=== PATIENT | male | born 1995 | race Caucasian/White ===

== ENCOUNTER → 2018-10-16 15:00 | Outpatient (CLI) | payer SELFPAY ==
--- NOTE | 2018-10-16 15:00 | LES_PTH ---
PATIENT: MISSAEL SILVA LOC: [facility] U#:[id number] AGE/SX: 30/M ROOM: RE10/16/[address]: Dr. Carlos Silva MD : 1995 BED: DIS: SPEC #: [id number] RECD: 10/17/18 11:16 STATUS: MAHIN BRITTNY #: [id number] VALENTINA: 10/16/18 15:[address]: Carlos Silva DEPT: SURGICAL PATHOLOGY RECD BY: Vitor Garcia Tissues: A - Skin of neck, NOS B - Skin of back, NOS Procedures: [facility] Consultation Surgery Specimen Level IV HEADER OPERATION: Excision right neck and mid back lesions PRE-OP DIAGNOSIS: Uncertain neoplasm neck and trunk TISSUE SUBMITTED: A - Right neck tissue, B - Back tissue MICROSCOPIC DIAGNOSIS A. Right neck lesion, excisional biopsy: Compound nevus with predominantly intradermal component, completely excised in the planes of sections examined. B. Back lesion, excisional biopsy: Junctional nevus with mild architectural atypia, completely excised in the planes of sections examined. STEPHEN:erich 10/18/18 MICROSCOPIC DESCRIPTION Slides are reviewed. GROSS DESCRIPTION A - Received in fixative is one container labeled with the patient's name and designated right neck tissue. The specimen consists of a piece of thomas-brown skin measuring 0.7 x 0.4 x 0.3 cm. The specimen is inked and submitted entirely in one cassette. It will be bisected at the time of embedding. B - Received in fixative is one container labeled with the patient's name and designated back tissue. The specimen consists of a thomas-white skin ellipse measuring 1.7 x 0.6 cm and up to 1 cm in thickness. There is an ovoid to slightly irregular brown lesion on the surface measuring 0.6 x 0.5 cm. The specimen is inked, serially sectioned and submitted entirely in two cassettes. / STEPHEN:erich 10/17/18 TC:1 CPT: 79908 x2 ADDENDUM ADDENDUM ADDENDUM ADDENDUM ADDENDUM ADDENDUM ADDENDUM ADDENDUM ADDENDUM ADDENDUM ADDENDUM ADDENDUM 11/01/2018 12:31 ADDENDUM 11/01/2018 12:31 ADDENDUM 11/01/2018 12:31 ADDENDUM 11/01/2018 12:31 ADDENDUM 11/01/2018 12:31 This addendum is added to incorporate an outside pathology consultation report. The case was examined at [facility] (#[id number]) and the following diagnosis was rendered. A. Skin, right neck, excision: Compound nevus. B. 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 Please see complete above mentioned consultation report in EMR
== END ==
PROVIDERS: Referring Provider Surgery; Visit Provider Surgery
DX: D22.4 Melanocytic nevi of scalp and neck (principal)
CPT/HCPCS: 88305; 88325

== ENCOUNTER → 2022-04-19 | Outpatient (CLI) | payer OTHER, SELFPAY ==
--- NOTE | 2022-04-19 16:32 | US_ITS ---
STUDY: SCROTUM ULTRASOUND REASON FOR EXAM: Male, 26 years old. right testicular mass TECHNIQUE: Ultrasound evaluation of the scrotum was performed with color Doppler and static barraza-scale imaging. COMPARISON: None. FINDINGS: RIGHT TESTICLE INTRATESTICULAR: There is a normal size of the right testicle. The right testicle measures 4.2 x 3.4 cm. There is a homogenous echotexture. There is normal arterial and normal venous vascularity. There is no demonstrated right testicular mass or cyst. EXTRATESTICULAR: The epididymis is normal in size. The epididymis head measures 1 cm. There is normal vascularity of the epididymis. There is a well-defined cystic structure within the epididymis, without internal echoes, consistent with an epididymal cyst. This measures 3.3 mm. There is no demonstrated hydrocele. There is no demonstrated varicocele. There is a demonstrated extratesticular mass measuring 5 x 5 mm. This extends off the tunica albuginea. It is avascular. This can be related to prior or recent traumatic injury and the sequela of a scrotal hematoma. LEFT TESTICLE INTRATESTICULAR: There is a normal size of the left testicle. The left testicle measures 5 x 2.2 x 2.9 cm. There is a homogenous echotexture. There is normal arterial and normal venous vascularity. There is no demonstrated left testicular mass or cyst. EXTRATESTICULAR: The epididymis is normal in size. The epididymis head measures 1.3 cm. There is normal vascularity of the epididymis. There is a cystic structure within the epididymis, with low level echoes, consistent with a spermatocele. This measures 8 mm. There is no demonstrated hydrocele. There is no demonstrated varicocele. There is no demonstrated extratesticular mass or cyst. US/Testicular with Arterial Flow IMPRESSION: There are no acute findings of the bilateral testicles without evidence for torsion. There is a demonstrated RIGHT extratesticular mass measuring 5 x 5 mm. This extends off the tunica albuginea. It is avascular. This can be related to prior or recent traumatic injury and the sequela of a scrotal hematoma. The patient has a history of prior surgery. This can also be related to scar formation. Electronically Signed: Skip Laura MD at 18:52 EDT ,
== END | disposition home or self-care (01) ==
LOC: US 16:32
PROVIDERS: Visit Provider Surgery
DX: N50.89 Other specified disorders of the male genital organs (principal)
CPT/HCPCS: 76870; 93976